=== PATIENT | female | born 1975 | race Caucasian/White ===

== ENCOUNTER 2020-02-02 08:12 | Outpatient (CLI) | payer OTHER, SELFPAY ==
--- NOTE | ~2020-02-02 | MM_ITS ---
EXAMINATION: MM screening jeramie BI w chanel HISTORY: Screening TECHNIQUE: Craniocaudal and mediolateral oblique 3-D tomosynthesis images were obtained and synthetic 2-D images were generated. CAD analysis was submitted and interpreted. COMPARISON: Comparison to multiple prior studies sequentially, with oldest reviewed study dated 06/17. BREAST PARENCHYMAL COMPOSITION: The breasts are extremely dense, which lowers the sensitivity of mamm ography. FINDINGS: There is no evidence of suspicious mass, calcification, or architectural distortion to sugg est malignancy in either breast. There has been no suspicious interval change. IMPRESSION: 1. No mammographic evidence of malignancy. 2. Recommend routine screening mammography in one year. BI-RADS Category 1: Negative Reviewed, dictated and finalized at location A.
== END 2020-02-02 08:13 | disposition home or self-care (01) ==
PROVIDERS: PCP Internal Medicine Geriatric Medicine
DX: Z12.31 Encounter for screening mammogram for malignant neoplasm of breast (principal)
CPT/HCPCS: 77063; 77067

== ENCOUNTER 2021-05-11 07:54 | Outpatient (CLI) | payer OTHER, SELFPAY ==
--- NOTE | ~2021-05-11 | MM_ITS ---
EXAMINATION: MM screening jeramie BI w chanel HISTORY: Screening TECHNIQUE: Craniocaudal and mediolateral oblique 3-D tomosynthesis images were obtained and synthetic 2-D images were generated. CAD analysis was submitted and interpreted. COMPARISON: Comparison to multiple prior studies sequentially, with oldest reviewed study dated 06/17. BREAST PARENCHYMAL COMPOSITION: The breasts are extremely dense, which lowers the sensitivity of mamm ography. FINDINGS: There is no evidence of suspicious mass, calcification, or architectural distortion to sugg est malignancy in either breast. There has been no suspicious interval change. IMPRESSION: 1. No mammographic evidence of malignancy. 2. Recommend routine screening mammography in one year. BI-RADS Category 1: Negative Reviewed, dictated and finalized at location A. ANALYST
== END 2021-05-11 07:55 | disposition home or self-care (01) ==
LOC: ANHIMG 07:57
PROVIDERS: PCP Internal Medicine Geriatric Medicine; Visit Provider Internal Medicine Geriatric Medicine
DX: Z12.31 Encounter for screening mammogram for malignant neoplasm of breast (principal)
CPT/HCPCS: 77063; 77067

== ENCOUNTER 2022-09-19 08:40 | Outpatient (CLI) | payer OTHER, SELFPAY ==
--- NOTE | ~2022-09-19 | MM_ITS ---
EXAMINATION: MM screening jeramie BI w chanel HISTORY: Screening mammogram TECHNIQUE: Craniocaudal and mediolateral oblique 3-D tomosynthesis images were obtained and synthetic 2-D images were generated. CAD analysis was submitted and interpreted. COMPARISON: 05/11/2021, 02/02/2020, 04/24/2019 BREAST PARENCHYMAL COMPOSITION: The breasts are extremely dense, which lowers the sensitivity of mamm ography. FINDINGS: RIGHT BREAST: No suspicious mass, calcification, or architectural distortion are identified to sugges t malignancy. There has been no suspicious interval change. LEFT BREAST: An asymmetry is present at the posterior fibroglandular margin in the outer breast 5.5 c m from the nipple on the craniocaudal view. IMPRESSION: 1. Left breast asymmetry. 2. Additional mammographic views and possible breast ultrasound are recommended. BI-RADS Category 0: Incomplete: Needs additional imaging evaluation. Reviewed, dictated and finalized at location A. IMPRESSION: 1. Left breast asymmetry. 2. Additional mammographic views and possible breast ultrasound are recommended . BI-RADS Category 0: Incomplete: Needs additional imaging evaluation.
== END 2022-09-19 08:41 | disposition home or self-care (01) ==
LOC: ANHIMG 08:43
PROVIDERS: PCP Internal Medicine Geriatric Medicine; Visit Provider Obstetrics & Gynecology
DX: Z12.31 Encounter for screening mammogram for malignant neoplasm of breast (principal)
CPT/HCPCS: 77063; 77067

== ENCOUNTER 2022-09-28 11:57 | Outpatient (CLI) | payer OTHER, SELFPAY ==
--- NOTE | ~2022-09-28 | MMUS_ITS ---
EXAMINATION: MM diagnostic jeramie LT w chanel, US breast LT limited HISTORY: Left breast mammographic asymmetry in the posterior fibroglandular margin in the outer breas t 5.5 cm from nipple on craniocaudal view reported on 09/15/2022 screening mammogram TECHNIQUE: Additional 3-D tomosynthesis images of the left breast were performed and synthetic 2-D im ages were generated. Rolled medial and rolled lateral craniocaudal views. CAD analysis was submitted and interpreted. High resolution left upper outer quadrant and lower outer quadrant breast ultrasound was performed. COMPARISON: None FINDINGS: MAMMOGRAPHIC FINDINGS: Approximately 4 mm circumscribed opacity is again suggested in the posterior outer left breast on rot ated medial craniocaudal projection. Extremely dense fibroglandular stroma may obscure masses. ULTRASOUND: 12:00: Septated 9.4 x 8.5 x 5.2 mm cyst with through transmission posterior enhancement, no internal vascularity 5:00 6 cm from nipple: Parallel circumscribed 4.3 x 5.2 x 2.1 mm sonolucency with through transmissio n consistent with cyst No suspicious mass or shadowing of the upper outer or lower outer quadrants of the left breast is det ected. IMPRESSION: 1. Benign findings 2. Routine annual mammographic screening is recommended, with possible supplemental ultrasound as yenny ropriate for extremely dense stroma BI-RADS Category 2: Benign finding(s). Reviewed, dictated and finalized at location A. IMPRESSION: 1. Benign findings 2. Routine annual mammographic screening is recommended, with possible suppleme ntal ultrasound as appropriate for extremely dense stroma BI-RADS Category 2: Benign finding(s).
== END 2022-09-28 11:58 | disposition home or self-care (01) ==
LOC: ANHIMG 11:57
PROVIDERS: PCP Internal Medicine Geriatric Medicine; Visit Provider Obstetrics & Gynecology
DX: R92.8 Other abnormal and inconclusive findings on diagnostic imaging of breast (principal)
CPT/HCPCS: 76642; 77061; 77065; G0279

== ENCOUNTER 2025-02-13 08:39 | Emergency (ER) | payer OTHER, SELFPAY ==
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
[2025-02-13 08:46] VITALS: BP 116/88; PULSE 72; RESP 16; TEMP 36.5; O2SAT 100
--- OUTSIDE RECORDS SUMMARY | 2025-02-13 08:46 | XMS_ITS | Encounter Summary ---
Author Organization [employer] Address [address] [place] [address] Care Team Providers Care Assistant Property Manager Name Role Phone Unavailable Primary Care Provider Unavailabl e Encounter Details Date Type Department Care Team (Latest Contact Info) Description 02/09/2006 Outpatient Historical HIS [place] [address] [place] [address] [place] [address] [place] [address] Other Threatened Labor, Antepartum (Primary Dx) Social History Tobacco Use Types Packs/Day Years Used Date Smoking Tobacco: Never Assessed Comments Unknown Sex and Gender Information Value Date Recorded Sex Assigned at Not on file Legal 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
--- OUTSIDE RECORDS SUMMARY | 2025-02-13 08:46 | XMS_ITS | Encounter Summary ---
[facility] Organization [email or web address] Address [address] [place] [address] Care Team Providers Care Fire Equipment Operator Name Role Phone Unavailable Primary Care Provider Unavailabl e Encounter Details Date Type Department Care Team (Latest Contact Info) Description 11/21/2005 Outpatient Historical HIS [place] [address] [place] [address] [place] [address] [place] [address] Threatened Premature Labor, Antepartum (Primary Dx) Social History Tobacco Use Types Packs/Day Years Used Date Smoking Tobacco: Never Assessed Comments Unknown Sex and Gender Information Value Date Recorded Sex Assigned at Not on file 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
--- OUTSIDE RECORDS SUMMARY | 2025-02-13 08:46 | XMS_ITS | Encounter Summary ---
Author Organization [facility] Address [address] [place] [address] Care Team Providers Care Remote Sensing Technician Name Role Phone Unavailable Primary Care Provider Unavailabl e Encounter Details Date Type Department Care Team (Late st Contact Info) Description 09/28/2005 Outpatient Historical [facility] Maternal and Ground Floor S [facility] [address] [place] [address] Rehan Evans MD NO ADDRESS ON FILE Social History Tobacco Use Types Packs/Day Years Used Date Smoking Tobacco: Never Assessed Comments Unknown Sex and Gender Information Value Date Recorded Sex Assigned at Not on file Legal Sex Female 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
--- OUTSIDE RECORDS SUMMARY | 2025-02-13 08:46 | XMS_ITS | Clinical Summary ---
Author Organization [facility] Address [address] [place] [address] Phone Care Team Providers Care Relocation Associate Name Role Phone Unavailable Primary Care Provider Unavailabl e Encounters Date Type Department Care Team Description 01/13/2025 External Device Data STL ABSTRACTION Provider, Abstract 01/12/2025 External Device Data STL ABSTRACTION Provider, Abstract 12/01/2024 External Device Data STL ABSTRACTION Provider, Abstract from Last 3 Months Social History Tobacco Use Types Packs/Day Years Used Date Smoking Tobacco: Never Assessed Comments Unknown Sex and Gender Information Value Date Recorded Sex Assigned at Not on file Legal Sex Female 3:25 AM HERB COUNSELOR Gender Identity Not on file Sexual Orientation Not on file Plan of Treatment Upcoming Encounters Date Type Department Care Team (Late st Contact Info) Description 04/09/2025 9:20 AM HERB COUNSELOR Appointment [facility] A [address] [place] [address] [place] [address] [place] [address] Health Maintenance Due Date Last Done Comments DTAP/TDAP/TD VACCINES (1 - Tdap) 12/15/1994 HEPATITIS B VACCINES (1 of 3 - 19+ 3-dose series) 12/15/1994 HPV/Cotest (21-29) 12/15/1996 CERVICAL CANCER SCREENING 12/15/2005 HPV/Cotest (30-65) 12/15/2005 PAP SMEAR 12/15/2005 COLORECTAL SCREENING 12/15/2020 Colorectal Cancer Screening 12/15/2020 FIT-DNA Q 3 years 12/15/2020 FIT/FOBT Q 1 year 12/15/2020 Flex Sig/CT Colonography Q 5 years 12/15/2020 INFLUENZA VACCINE (#1) 2024 0, 02/21/2019, 01/13/2015 BREAST CANCER SCREENING 04/16/2025 04/16/2024, 11/04 Procedures Procedure Name Priority Date/Time Associated Diagnosis Comments MAMMO 3D ASHWIN SCREEN BILAT W OR WO CAD Routine 04/16/2024 9:19 AM HERB COUNSELOR Encounter for screening mammogram for malignant neoplasm of breast from Last 3 Months or Most Recently Relevant to Health Maintenance Results * MAMMO 3D ASHWIN SCREEN BILAT W OR WO CAD (04/16/2024 9:19 AM HERB COUNSELOR) Anatomical Region Laterality Modality Breast Bilateral Mammography 04/16/2024 9:20 AM HERB COUNSELOR Addenda Addendum by July Razo MD on 04/28/2024 7:10 AM HERB COUNSELOR ADDENDUM: The previous outside mammograms dated 09/28/2022, 09/19/2022 and 05/11/2021 were made available for comparison. The breast tissues are heterogeneously dense bilaterally which may lower sensitivity of mammography. No new mass, malignant calcification or architectural distortion is seen. CAD was used. IMPRESSION: No evidence of malignancy. RECOMMENDATIONS: Bilateral annual screening mammogram. BI-RADS Category 1. Negative. Impressions 04/16/2024 10:07 AM HERB COUNSELOR IMPRESSION: [facility] Radiology will request the patient's previous outside studies in order to assess for stability. An addendum will be provided after reviewing the outside exams. DICTATION LOCATION: [facility] 04/16/2024 10:07 AM HERB COUNSELOR BILATERAL FULL-FIELD DIGITAL SCREENING MAMMOGRAM WITH CAD WITH TOMOGRAPHY DATE: 04/16/2024 9:19 AM HISTORY: Annual screening. TECHNIQUE: Low-dose full-field digital breast tomosynthesis examination was performed with 2D and 3D acquisitions. Examination is read in conjunction with computer aided detection. COMPARISON: None. BREAST COMPOSITION: The breasts are heterogeneously dense, which may obscure small masses. FINDINGS: Previous exams are currently unavailable. The patient's outside studies will be requested in order to assess for stability. OVERALL FINAL ASSESSMENT: BI-RADS CATEGORY 0: Incomplete, needs comparison to prior mammograms us Nuria Rivas DO MAMMO ORDERABLES Edited Result - Final from Last 3 Months or Most Recently Relevant to Health Maintenance Insurance [employer] MA[employer] CHOICE
--- OUTSIDE RECORDS SUMMARY | 2025-02-13 08:46 | XMS_ITS | Clinical Summary ---
Author Organization [facility] Address [address] [place] [address] Phone Care Team Providers Care Clothes Separator Name Role Phone MACARIO GUZMAN, SHERINE Dalton Primary Care Provider [phone] Reason for Visit and Chief Complaint The Chief Complaint is: SORE THROAT, COUGH, HEADACHE Plan of Treatment - The options include close observation - Last Documented On 03/14/2020 3:34PM ; [facility] - Watch for signs/symptoms of infection, return to the clinic if seen - Last Documented On 03/14/2020 3:34PM ; [facility] Patient is to quarantine until 14 days past last exposure OTC medication for fever and/or bodyaches Call clinic for worsening symptoms or concerns Go to ED for severe difficulty breathing or lethargy - Last Documented On 03/14/2020 3:34PM ; [facility] Instructions to patient Watch for signs/symptoms of infection, return to the clinic if seen Last Documented On 0 3:29PM ; [facility] Assessments Includes: Assessments from this encounter Findings - Cough [Cough] - Last Documented On 03/14/2020 3:34PM ; [facility] - Exposure to a viral disease [Contact with and (suspected) exposure to other viral communicable diseases] - Last Documented On 03/14/2020 3:34PM ; [facility] Instructions Includes: Instructions from this encounter Instructions to patient Watch for signs/symptoms of infection, return to the clinic if seen Last Documented On 0 3:29PM ; [facility] Medical Equipment - Implanted Devices Includes: Current Devices No Medical Equipment Recorded Medications Includes: Medications discussed during this encounter and other current Medications No Medications Taken Medications Administered Includes: Administered Medications from this encounter No Administered Medications Recorded Vital Signs Includes: Vital Signs from this encounter Vital Name 03/14/2020 03:09P Pulse Rate-Sitting (bpm) 72 Temp-Oral (F) 98.2 Oxygen Saturation (%) 98 Last Documented: On 03/14/2020 3:10PM ; [facility] Results Includes: Results discussed during this encounter Rapid COVID Test [facility] Ordered by QUANG BUCK-C on 05/14/2019 Collected: Reported: 03/14/2020 15:24 Last Documented On 0 3:24PM ; [facility] Reviewed on 03/14/2020; All test results are final unless otherwise noted. Rapid COVId NEG N (Normal) Last Documented On 0 3:24PM ; [facility] Int. QC Acceptable YES N (Normal) Last Documented On 0 3:24PM ; [facility] Lot # and Exp. Date [id number] 07/14/20 N (Normal) Last Documented On 0 3:24PM ; [facility] History of Present Illness Includes: History of Present Illness from this encounter MELY CH is a 44 year old female. - Medication reconciliation performed. - Not feeling fine - Feeling tired - Feeling poorly (malaise) - No fever - No chills - Headache - No sinus pain - No swollen glands in the neck - No eye symptoms - Nasal passage blockage (stuffiness) - Sore throat comes and goes - No ear symptoms - No nasal discharge - No postnasal drip - No chest pain or discomfort - No palpitations - Cough - No dyspnea - No wheezing - No nausea - No vomiting - No abdominal pain - No diarrhea - No myalgias - No skin symptoms Patient is a 44 year old female that presents to the respiratory clinic for exposure to COVID. She was exposed to a co-worker saturday. She states she started having congestion, mild sore throat, cough and headache starting yesterday. Denies fever, SOB, loss of taste/smell, fatigue, bodyaches, n/v/d. Denies any recent travel. Social History Description Last Updated No travel 03/14/2020 Last Documented On 0 3:34PM ; [facility] Smoking Status Unknown Procedures and Surgical History Includes: Procedures from this encounter Procedures Code Diagnosis Performing Provider Service L ocation Service Date review of medications documented 1160F Last Documented On 0 3:09PM ; [facility] Medical History Includes: Medical History addressed during this encounter Description Last Updated Exposure to a contagious disease 020 Last Documented On 0 3:34PM ; [facility] Family History Includes: Family History addressed during this encounter No Family History Recorded Review of Systems Includes: Review of Systems from this encounter Systemic: No systemic symptoms and no fever. Head: Headache. Neck: No neck symptoms. Eyes: No eye symptoms. Otolaryngeal: Nasal passage blockage (stuffiness). Cardiovascular: No cardiovascular symptoms. Pulmonary: Cough. Gastrointestinal: No gastrointestinal symptoms. Genitourinary: No genitourinary symptoms. Endocrine: No endocrine symptoms. Hematologic: No hematologic symptoms. Musculoskeletal: No musculoskeletal symptoms. Neurological: No neurological symptoms. Psychological: No psychological symptoms. Skin: No skin symptoms. Mental Status Includes: Mental Status from this encounter No Mental Status Recorded Functional Status Includes: Functional Status from this encounter No Functional Status Recorded Physical Exam Includes: Physical Exam from this encounter Allergies Includes: Active Allergies No Known Allergies Encounters Encounter Provider Location Date Check-In Time Check-Out Time Diagnosis SICK VISIT QUANG LOPEZP-C [facility] 0 2:30PM 3:28PM Exposure To Contagious Viral Disease,Assess ment of Cough Insurance Includes: Active Insurance Policies Plan Name Member ID Group # Subscriber Relationship Effect satish Dates 1 - [facility] [id number] ADID CH Self Clinical Notes Includes: Clinical Notes from this encounter No Clinical Notes Recorded
--- OUTSIDE RECORDS SUMMARY | 2025-02-13 08:46 | XMS_ITS | Clinical Summary ---
Author Organization [facility] Address [address] [place] [address] Phone Care Team Providers Care Washer Cutter Name Role Phone Analisa Ventura MD Primary Care Provider [phone] Social History Tobacco Use Types Packs/Day Years Used Date Smoking Tobacco: Never Assessed Comments Unknown Sex and Gender Information Value Date Recorded Sex Assigned at Not on file Legal Sex Female 11:12 PM CDT Gender Identity Not on file Sexual Orientation Not on file Plan of Treatment Health Maintenance Due Date Last Done Comments Hepatitis C Virus (HCV) Screening 1975 TdaP Immunization 1975 Hepatitis B Immunization (1 of 3 - 19+ 3-dose series) 12/15/1994 Pap Smear 12/15/1996 Cervical Cancer Screening (CCS) 12/15/2005 HPV/Cotest 12/15/2005 Cologuard 12/15/2020 Colonoscopy 12/15/2020 Colorectal Cancer Screening 12/15/2020 Immunochemical Fecal Occult Blood 12/15/2020 Influenza Immunization (#1) 12/28/202401/28, 02/21/2019 SARS-COV-2 Immunization ( season) 2024 Respiratory Syncytial Virus (RSV) Immunization (Adult) (1 - 1-dose 75+ series) 12/15/2050 Human Papillomavirus (HPV) Immunization Aged Out No longer eligible b ased on patient's age to complete this topic Meningococcal Immunization (ACWY) Aged Out No longer eligible b ased on patient's age to complete this topic Pneumococcal Immunization Combined Aged Out No longer eligible b ased on patient's age to complete this topic Rotavirus Immunization Aged Out No lo nger eligible based on patient's age to complete this topic Care Teams Washer Cutter Relationship Specialty Start Date End Date Analisa Ventura MD [address] [place] [address] PCP - General Geriatric Medicine 02/23/21
--- OUTSIDE RECORDS SUMMARY | 2025-02-13 08:46 | XMS_ITS | Encounter Summary ---
Author Organization [facility] Address 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 ENGRAVER Gender Identity Not on file Sexual Orientation Not on file documented as of this encounter Plan of Treatment Upcoming Encounters Date Type Department Care Team (Late st Contact Info) Description 04/09/2025 9:20 AM ENGRAVER Appointment [facility] [place] A [address] [place] [address] [place] [address] [place] [address] documented as of this encounter Procedures Procedure Name Priority Date/Time Associated Diagnosis Comments FISH STUDIES Routine 10/01/2005 1:53 PM CDT CHROMOSOME ANALYSIS, AMNIOTIC FLUID Routine 09/28/2005 1:17 PM CDT documented in this encounter Results * FISH STUDIES (10/01/2005 1:53 PM CDT) [facility] CYTOGENETICS SPECIMEN Amniotic Fluid INTERFACE SYSTEM FISH RESULTS INTERFA CE SYSTEM Comment: RESULTS: NO EVIDENCE OF NUMERICAL ABNORMALITY for chromosomes 13, 18, 21, X and Y Sex: Female INTERPRETATION: NORMAL INSIGHT RESULT Within the limitations of this technology, this result significantly reduces the risk of aneuploidy for chromosomes 13, 18, 21, X and Y. ISCN nomenclature: nuc marck Xcen(DXZ1x2),Ycen(DYZ3x0),13q14(RB1x2),18cen(B39U0a6), 21q22.13-q22.2([id number]/[id number]) RECOMMENDATIONS: Because these normal screening test results do not exclude all numerical or other cytogenetic abnormalities, standard cytogenetic analysis is recommended. If cytogenetic analysis has been ordered from [facility], that result is pending. COMMENTS: About one third of all chromosome abnormalities cannot be detected by [facility], including structural abnormalities, mosaicism, and numerical abnormalities of other chromosomes. This result should be considered preliminary. In cases of XX results, maternal cell admixture in the amniotic fluid specimen may have compromised the interpretation. In over 40,000 informative amniotic fluid specimens using the AneuVysion TM probe set false positives, false negatives, and incorrect sex determinations have occurred. The presence of maternal blood in the specimen or the presence of oligohydramnios in the increases the risk of incorrect results due to maternal cell contamination. Overall the positive predictive value of an abnormal [facility] result is 99.83% and the negative predictive value of a normal [facility]ight result is 99.96% for the detectable aneuploidies. Blackstrap is the [facility] name for interphase fluorescence in situ hybridization (FISH) analysis for chromosomes 13, 18, 21, X, and Y. Our laboratory currently utilizes the AneuVysionTM probe set from [employer] For standard analyses, 50 cells are examined for each probe. Testing Performed At [facility] [address] [place] [id number], [phone] 10/01/2005 1:53 PM CDT Gerri Mckoy MD BODY FLUIDS AND STOOLS Final R esult Performing Organization Address [facility] de Phone Number INTERFACE SYSTEM Refer to clinic/hospital department * CHROMOSOME ANALYSIS, AMNIOTIC FLUID (09/28/2005 1:17 PM CDT) CYTOGENETICS SPECIMEN Amniotic Fluid INTERFACE SYSTEM CHROMOSOME RESULTS I NTERFACE SYSTEM Comment: RESULTS: 46,XX Female karyotype-SEE BELOW INTERPRETATION: This analysis shows no evidence of clinically significant numerical or structural chromosome abnormalities. The standard cytogenetic methodology utilized in this analysis does not routinely detect small rearrangements and low level mosaicism, and cannot detect microdeletions. The number of colonies examined does not meet our laboratory standard of 15. However, the overall incidence of mosaicism in amniotic fluid samples is reported to be low (0.1-0.3%; Tomas, Conrado.F., Diagnosis of Chromosomal Abnormalities through Amniocentesis. In Brian Nuñez ed., Genetic Disorders and the Fetus, 4th edition. [place]: [employer] [facility] [employer]. 1998. Pp. 203). If clinically indicated, a repeat amniocentesis could be offered. Because this is a female karyotype, maternal cell contamination cannot be excluded. 09/28/2005 1:17 PM CDT Gerri Mckoy MD BODY FLUIDS AND STOOLS Final R veronika Performing Organization Address [facility] Phone Number INTERFACE SYSTEM Refer to clinic/hospital department documented in this encounter Visit Diagnoses Diagnosis Unspecified abnormality affecting management of mother, antepartum condition or complication- Primary documented in this encounter
--- OUTSIDE RECORDS SUMMARY | 2025-02-13 08:46 | XMS_ITS | Patient Health Record ---
Author Organization [facility] [place] Address [address] [address] Care Team Providers Care Plate Developer Name Role Phone Luis Hughes Unavailable [phone] Frankie Dennison Unavailable Unavailable Allergies No Known Allergies Reason For Referral No Information Social History Tobacco Use: Social History Observation Description Date Details (start date - stop date) Never Smoker NA - NA Tobacco Use/Smoking Question Answer Notes Are you a nonsmoker Problems Problem Type SNOMED Code ICD Code Onset Dates Problem Status W/U Status Risk Notes Problem Lumbosacral radiculopathy (6507068) Radiculopathy, lumbosacral region (M54.17) Active confirmed Problem Degenerative disc disease (16798682) DDD (degenerative disc disease), lumbar (M51.36) Active confirmed Problem Displacement of lumbar intervertebral disc without myelopathy (32588045) Herniated nucleus pulposus, L5-S1 (M51.27) Active confirmed Problem Displacement of lumbar intervertebral disc without myelopathy (53239585) Herniated nucleus pulposus, L5-S1, right (M51.27) Active confirmed Plan Of Treatment No Information Medications Administered Medication Instructions Date of Administration Dosage Notes RIGHT L5/S1 SESI 12/23/2020 RIGHT L5/S1 SESI 01/31/2021 Medical (General) History Medical History History ICD Code anxiety Surgical History Surgery Date(Month/Year) Nasal Breast lump 1996
--- OUTSIDE RECORDS SUMMARY | 2025-02-13 08:46 | XMS_ITS | Encounter Summary ---
Author Organization [facility] Address 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 Gender Identity Not on file Sexual Orientation Not on file documented as of this encounter Plan of Treatment Upcoming Encounters Date Type Department Care Team (Late st Contact Info) Description 04/09/2025 9:20 AM INVENTORY WORKER Appointment [facility] [place] A [address] [place] [address] [place] [address] [place] [address] documented as of this encounter Procedures Procedure Name Priority Date/Time Associated Diagnosis Comments URINALYSIS WITH REFLEX CULTURE Routine 11/16/2005 9:00 PM CDT URINALYSIS W/REFLEX MICROSCOPIC Routine 11/16/2005 9:00 PM CDT documented in this encounter Results * (ABNORMAL) URINALYSIS (11/16/2005 9:00 PM CDT) COLOR UA Yellow INTERFACE SYSTEM CLARITY UA Clear Clear INTERFACE SYSTEM SPECIFIC GRAVITY UA <1.005(L) 1.001 - 1.035 INTERFACE SYSTEM Comment:Results confirmed by 2nd methodology. PH UA 7.0 5.0 - 8.0 INTERFACE SYSTEM LEUKOCYTE ESTERASE UA Negative Negative INTERFACE SYSTEM NITRITE UA Negative Negative INTERFACE SYSTEM PROTEIN UA Negative Negative INTERFACE SYSTEM GLUCOSE UA Negative Negative INTERFACE SYSTEM KETONES UA Negative Negative INTERFACE SYSTEM UROBILINOGEN UA <1 <=1 mg/dL INTE RFACE SYSTEM BILIRUBIN UA Negative Negative INTERFA CE SYSTEM BLOOD UA Negative Negative INTERFACE SYSTEM 11/16/2005 9:00 PM CDT Gerri Mckoy MD URINE ORDERABLES Final Result Performing Organization Address [facility] de Phone Number INTERFACE SYSTEM Refer to clinic/hospital department * URINALYSIS WITH REFLEX CULTURE (11/16/2005 9:00 PM CDT) URINE CULTURE ORDER Not indicated INTERFACE SYSTEM Comment: Criteria for a reflex culture include one or more of the following: Abn ormal nitrite, leukocyte esterase, WBCs or RBCs. Lack of qualifying criteria does not exclude the possiblity of a urinary tract infection. Dilute urine, drug interference, etc. may decrease the sensitivity of the criteria analytes. 11/16/2005 9:00 PM CDT Gerri Mckoy MD URINE ORDERABLES Final Result Performing Organization Address [facility] Co de Phone Number INTERFACE SYSTEM Refer to clinic/hospital department documented in this encounter Visit Diagnoses Diagnosis Threatened premature labor, antepartum(644.03)- Primary Threatened premature labor, antepartum documented in this encounter
--- OUTSIDE RECORDS SUMMARY | 2025-02-13 08:46 | XMS_ITS | Encounter Summary ---
Author Organization [facility] Address 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 Gender Identity Not on file Sexual Orientation Not on file documented as of this encounter Plan of Treatment Upcoming Encounters Date Type Department Care Team (Late st Contact Info) Description 04/09/2025 9:20 AM HOUSING PROJECT MANAGER Appointment [facility] [place] A [address] [place] [address] [place] [address] [place] [address] documented as of this encounter Procedures Procedure Name Priority Date/Time Associated Diagnosis Comments CBC WITH DIFFERENTIAL Routine 02/09/2006 11:16 AM CDT CBC WITH DIFFERENTIAL Routine 02/09/2006 11:16 AM CDT URINALYSIS W/REFLEX MICROSCOPIC Routine 02/09/2006 11:16 AM CDT documented in this encounter Results * (ABNORMAL) URINALYSIS (02/09/2006 11:16 AM CDT) COLOR UA Pale Yellow INTERFAC E SYSTEM CLARITY UA Slt. Cloudy(A) Clear INTERFACE SYSTEM SPECIFIC GRAVITY UA <1.005 1.001 - 1.035 INTERFACE SYSTEM PH UA 7.0 5.0 - 8.0 INTERFACE SYSTEM LEUKOCYTE ESTERASE UA 3+(A) Negative INTERFACE SYSTEM NITRITE UA Negative Negative INTERFACE SYSTEM PROTEIN UA Negative Negative INTERFACE SYSTEM GLUCOSE UA Negative Negative INTERFACE SYSTEM KETONES UA Negative Negative INTERFACE SYSTEM UROBILINOGEN UA <1 <=1 mg/dL INTE RFACE SYSTEM BILIRUBIN UA Negative Negative INTERFA CE SYSTEM BLOOD UA Negative Negative INTERFACE SYSTEM WBC UA 6(H) 0 - 5 /HPF INTERFACE SYSTEM RBC UA 1 0 - 4 /HPF INTERFACE SYSTEM BACTERIA UA 1+(A) None Seen /HPF INTERFACE SYSTEM EPITHELIAL CELLS, URINE Many /HPF INTERFACE SYSTEM TRANSITIONAL EPI 0-2 /HPF INT ERFACE SYSTEM 02/09/2006 11:1 6 AM CDT us Gerri Mckoy MD URINE ORDERABLES Final Result INTERFACE SYSTEM Refer to clinic/hospital department * (ABNORMAL) CBC WITH DIFFERENTIAL (02/09/2006 11:16 AM CDT) NEUTROPHILS 76(H) 45 - 70 % INTERFAC E SYSTEM LYMPHOCYTES 15(L) 16 - 45 % INTERFAC E SYSTEM MONOCYTES 8 3 - 13 % INTERFACE SYSTEM EOSINOPHILS 0 0 - 7 % INTERFAC E SYSTEM BASOPHILS 0 0 - 2 % INTERFACE SYSTEM NEUTROPHIL ABSOLUTE 9.60(H) 1.90 - 7.00 K/uL INTERFACE SYSTEM LYMPHOCYTE ABSOLUTE 1.94 0.70 - 4.50 K/uL INTERFACE SYSTEM MONOCYTE ABSOLUTE 1.05 0.10 - 1.30 K/uL INTERFACE SYSTEM EOSINOPHIL ABSOLUTE 0.03 0.00 - 0.70 K/uL INTERFACE SYSTEM BASOPHILS ABSOLUTE 0.03 0.00 - 0.20 K/uL INTERFACE SYSTEM 02/09/2006 11:1 6 AM CDT us Gerri Mckoy MD HEMATOLOGY ORDERABLES Final Re sult INTERFACE SYSTEM Refer to clinic/hospital department * (ABNORMAL) CBC WITH DIFFERENTIAL (02/09/2006 11:16 AM CDT) WBC 12.7(H) 4.0 - 9.8 K/uL INTERFACE SYSTEM RBC 4.38 3.90 - 4.90 M/uL INTERFACE SYSTEM HEMOGLOBIN 12.7 11.8 - 14.8 g/dL INTERFACE SYSTEM HEMATOCRIT 37.8 35.5 - 44.0 % INTERFACE SYSTEM MCV 86.3 82.0 - 99.0 fL INTERFACE SYSTEM MCH 29.0 27.2 - 32.6 pg INTERFACE SYSTEM MCHC 33.6 31.5 - 35.5 % INTERFACE SYSTEM RDW 13.0 11.5 - 14.5 % INTERFACE SYSTEM RDW-STDEV 41.4 37.1 - 48.7 fL INTERFACE SYSTEM PLATELETS 158 140 - 350 K/uL INTERFACE SYSTEM MPV 10.2 9.3 - 12.4 fL INTERFACE SYSTEM 02/09/2006 11:1 6 AM CDT us Gerri Mckoy MD HEMATOLOGY ORDERABLES Final Re sult Performing Organization Address [facility] Co de Phone Number INTERFACE SYSTEM Refer to clinic/hospital department documented in this encounter Visit Diagnoses Diagnosis Other specified indication for care or intervention related to labor and delivery, delivered- Primary documented in this encounter
--- OUTSIDE RECORDS SUMMARY | 2025-02-13 08:46 | XMS_ITS ---
Care Plan - [facility] Created on: February 13, 2025 ADDI CH : 1975 Sex: Female Author Organization [facility] Address [address] [place] [address] Phone Care Team Providers Care Heading Up Machine Operator Name Role Phone MACARIO GUZMAN, SHERINE Dalton Primary Care Provider [phone]
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
--- OUTSIDE RECORDS SUMMARY | 2025-02-13 08:46 | XMS_ITS | Encounter Summary ---
Author Organization [facility] Address [address] [place] [address] Care Team Providers Care Junior Mechanical Engineer Name Role Phone Unavailable Primary Care Provider Unavailabl e Encounter Details Date Type Department Care Team (Late st Contact Info) Description 10/30/2005 Outpatient Historical [facility] [place] [address] [place] [address] Social History Tobacco Use Types Packs/Day Years Used Date Smoking Tobacco: Never Assessed Comments Unknown Sex and Gender Information Value Date Recorded Sex Assigned at Not on file Legal Sex Female 3:25 AM SWING DRIVER Gender Identity Not on file Sexual Orientation Not on file documented as of this encounter Plan of Treatment Upcoming Encounters Date Type Department Care Team (Late st Contact Info) Description 04/09/2025 9:20 AM SWING DRIVER Appointment [facility] Medical Jelm A [address] [place] [address] [place] [address] [place] [address] documented as of this encounter Visit Diagnoses Not on filedocumented in this encounter
--- OUTSIDE RECORDS SUMMARY | 2025-02-13 08:46 | XMS_ITS ---
Author Organization [facility] Address [address] [place] [address] Phone Care Team Providers Care Parks And Recreation Worker Name Role Phone MACARIO GUZMAN, SHERINE Dalton Primary Care Provider [phone] Plan of Treatment Findings Encounter Date The options include close observation SI CK VISIT with QUANG Weiss HEAVENLY HYPERTRICHOLOGIST-C 03/14/2020 Last Documented On 0 3:34PM ; [facility] Watch for signs/symptoms of infection, return to the clinic if seen SICK VISIT with QUANG Weiss HEAVENLY HYPERTRICHOLOGIST-C 03/14/2020 Last Documented On 0 3:34PM ; [facility] Instructions to patient Watch for signs/symptoms of infection, return to the clinic if seen Last Documented On 0 3:29PM ; [facility] Assessments Includes: Assessments for all patient encounters Findings Encounter Date Assessment of cough SICK VISIT with QUANG Weiss RADHA KENNEDY HYPERTRICHOLOGIST-C 03/14/2020 Last Documented On 0 3:34PM ; [facility] Exposure to a viral disease SICK VISIT with JOSE D Weiss HEAVENLY HYPERTRICHOLOGIST-C 03/14/2020 Last Documented On 0 3:34PM ; [facility] Instructions Includes: Instructions for all patient encounters Instructions to patient Watch for signs/symptoms of infection, return to the clinic if seen Last Documented On 0 3:29PM ; [facility] Medical Equipment - Implanted Devices Includes: Current and historical Devices No Medical Equipment Recorded Medications Includes: Current and historical Medications No Medications Taken Medications Administered Includes: Administered Medications in patient's chart No Administered Medications Recorded Results Includes: Results from 02/14/2024 through 02/13/2025 No Results Recorded For Specified Dates History of Present Illness History of Present Illness not supported for this document type No History of Present Illness Recorded Social History Description Last Updated No travel 03/14/2020 Last Documented On 0 3:34PM ; [facility] Smoking Status Unknown Medical History Includes: Medical History in patient's chart Description Last Updated Exposure to a contagious disease 020 Last Documented On 0 3:34PM ; [facility] Family History Includes: Family History in patient's chart No Family History Recorded Review of Systems Review of Systems not supported for this document type No Review of Systems Recorded Mental Status No Mental Status Recorded Functional Status No Functional Status Recorded Physical Exam Physical Exam not supported for this document type No Physical Exam Recorded Allergies Includes: Active, inactive, and resolved Allergies No Known Allergies Insurance Includes: Active Insurance Policies Plan Name Member ID Group # Subscriber Relationship Effect satish Dates 1 - [facility] [id number] ADDI CH Self Clinical Notes Includes: Signed Clinical Notes starting from 05/18/2022 No Clinical Notes Recorded
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
== END 2025-02-13 10:18 | disposition home or self-care (01) ==
PROVIDERS: Emergency Provider Nurse Practitioner
DX: S13.4XXA Sprain of ligaments of cervical spine, initial encounter (principal); S39.012A Strain of muscle, fascia and tendon of lower back, initial encounter; V49.9XXA Car occupant (driver) (passenger) injured in unspecified traffic accident, initial encounter
CPT/HCPCS: 72050; 72170; 99214; G0463

== ENCOUNTER → 2025-02-17 10:10 | Outpatient (CLI) | payer OTHER, SELFPAY ==
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
--- OUTSIDE RECORDS SUMMARY | 2025-02-17 12:16 | XMS_ITS | Patient Health Record ---
Author Organization [facility] [place] Address [address] [address] Care Team Providers Care Director Prison Name Role Phone Luis Hughes Unavailable [phone] Frankie Dennison Unavailable Unavailable Allergies No Known Allergies Reason For Referral No Information Social History Tobacco Use: Social History Observation Description Date Details (start date - stop date) Never Smoker NA - NA Tobacco Use/Smoking Question Answer Notes Are you a nonsmoker Problems Problem Type SNOMED Code ICD Code Onset Dates Problem Status W/U Status Risk Notes Problem Lumbosacral radiculopathy (7862408) Radiculopathy, lumbosacral region (M54.17) Active confirmed Problem Degenerative disc disease (28021550) DDD (degenerative disc disease), lumbar (M51.36) Active confirmed Problem Displacement of lumbar intervertebral disc without myelopathy (81876043) Herniated nucleus pulposus, L5-S1 (M51.27) Active confirmed Problem Displacement of lumbar intervertebral disc without myelopathy (89026385) Herniated nucleus pulposus, L5-S1, right (M51.27) Active confirmed Plan Of Treatment No Information Medications Administered Medication Instructions Date of Administration Dosage Notes RIGHT L5/S1 SESI 12/23/2020 RIGHT L5/S1 SESI 01/31/2021 Medical (General) History Medical History History ICD Code anxiety Surgical History Surgery Date(Month/Year) Nasal Breast lump 1996
--- OUTSIDE RECORDS SUMMARY | 2025-02-17 12:17 | XMS_ITS | Encounter Summary ---
Author Organization [facility] Address [address] [place] [address] Care Team Providers Care Needle Loom Tender Name Role Phone Unavailable Primary Care Provider Unavailabl e Encounter Details Date Type Department Care Team (Late st Contact Info) Description 09/28/2005 Outpatient Historical [facility] Maternal and Ground Floor S [facility] [address] [place] [address] Rehan Evans MD NO ADDRESS ON FILE Social History Tobacco Use Types Packs/Day Years Used Date Smoking Tobacco: Never Assessed Comments Unknown Sex and Gender Information Value Date Recorded Sex Assigned at Not on file 

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
--- OUTSIDE RECORDS SUMMARY | 2025-02-17 12:17 | XMS_ITS | Encounter Summary ---
Author Organization [facility] Address 

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
--- OUTSIDE RECORDS SUMMARY | 2025-02-17 12:17 | XMS_ITS | Encounter Summary ---
Author Organization [facility] Address [address] [place] [address] Care Team Providers Care Quill Machine Tender Name Role Phone Unavailable Primary Care Provider Unavailabl e Encounter Details Date Type Department Care Team (Latest Contact Info) Description 09/28/2005 Outpatient Historical [facility] [address] [place] [address] Abn NOS-Antepar (Primary Dx) Social History Tobacco Use Types Packs/Day Years Used Date Smoking Tobacco: Never Assessed Comments Unknown Sex and Gender Information Value Date Recorded Sex Assigned at Not on file Legal Sex Female 3:25 AM CRYSTALIZER OPERATOR Gender Identity Not on file Sexual Orientation Not on file documented as of this encounter Plan of Treatment Upcoming Encounters Date Type Department Care Team (Late st Contact Info) Description 04/09/2025 9:20 AM CRYSTALIZER OPERATOR Appointment [facility] [place] A [address] [place] [address] [place] [address] [place] [address] documented as of this encounter Procedures Procedure Name Priority Date/Time Associated Diagnosis Comments FISH STUDIES Routine 10/01/2005 1:53 PM CDT CHROMOSOME ANALYSIS, AMNIOTIC FLUID Routine 09/28/2005 1:17 PM CDT documented in this encounter Results * FISH STUDIES (10/01/2005 1:53 PM CDT) [facility] CYTOGENETICS SPECIMEN Amniotic Fluid INTERFACE SYSTEM FISH RESULTS INTERFA CE SYSTEM Comment: RESULTS: NO EVIDENCE OF NUMERICAL ABNORMALITY for chromosomes 13, 18, 21, X and Y Sex: Female INTERPRETATION: NORMAL INSIGHT RESULT Within the limitations of this technology, this result significantly reduces the risk of aneuploidy for chromosomes 13, 18, 21, X and Y. ISCN nomenclature: nuc marck Xcen(DXZ1x2),Ycen(DYZ3x0),13q14(RB1x2),18cen([id number]), 21q22.13-q22.2([id number]) RECOMMENDATIONS: Because these normal screening test results do not exclude all numerical or other cytogenetic abnormalities, standard cytogenetic analysis is recommended. If cytogenetic analysis has been ordered from [employer], that result is pending. COMMENTS: About one [...] result is 99.96% for the detectable aneuploidies. Supersonic is the [employer] name for interphase fluorescence in situ hybridization (FISH) analysis for chromosomes 13, 18, 21, X, and Y. Our laboratory currently utilizes the AneuVysionTM probe set from [employer] For standard analyses, 50 cells are examined for each probe. Testing Performed At [employer] [address] [place] [address], [phone] 10/01/2005 1:53 PM CDT Gerri Mckoy MD BODY FLUIDS AND STOOLS Final R esult Performing Organization Address [facility] Phone Number INTERFACE SYSTEM Refer to [...] Genetic Disorders and the Fetus, 4th edition. [place]: The [facility] University [employer]. 1998. Pp. 203). If clinically indicated, a repeat amniocentesis could be offered. Because this is a female karyotype, maternal cell contamination cannot be excluded. 09/28/2005 1:17 PM CDT Gerri Mckoy MD BODY FLUIDS AND STOOLS Final R veronika Performing Organization Address [facility] Phone Number INTERFACE SYSTEM Refer to clinic/hospital department documented in this encounter Visit Diagnoses Diagnosis Unspecified abnormality affecting management of mother, antepartum condition or complication- Primary documented in this encounter
--- OUTSIDE RECORDS SUMMARY | 2025-02-17 12:17 | XMS_ITS | Encounter Summary ---
Author Organization [facility] Address [address] [place] [address] Care Team Providers Care Printed Circuit Boards Router Name Role Phone Unavailable Primary Care Provider Unavailabl e Encounter Details Date Type Department Care Team (Late st Contact Info) Description 10/30/2005 Outpatient Historical [facility] [place] [address] [place] [address] Social History Tobacco Use Types Packs/Day Years Used Date Smoking Tobacco: Never Assessed Comments Unknown Sex and Gender Information Value Date Recorded Sex Assigned at Not on file Legal Sex Female 3:25 AM RIDE MECHANIC Gender Identity Not on file Sexual Orientation Not on file documented as of this encounter Plan of Treatment Upcoming Encounters Date Type Department Care Team (Late st Contact Info) Description 04/09/2025 9:20 AM RIDE MECHANIC Appointment [facility] [place] A [address] [place] [address] [place] [address] [place] [address] documented as of this encounter Visit Diagnoses Not on filedocumented in this encounter
--- OUTSIDE RECORDS SUMMARY | 2025-02-17 12:17 | XMS_ITS | Encounter Summary ---
Author Organization [facility] Address [address] [place] [address] Care Team Providers Care Brass And Wind Instrument Repairer Name Role Phone Unavailable Primary Care Provider Unavailabl e Encounter Details Date Type Department Care Team (Latest Contact Info) Description 02/09/2006 Outpatient Historical [facility] [place] [address] [place] [address] [place] [address] [place] [address] Other Threatened Labor, Antepartum (Primary Dx) Social History Tobacco Use Types Packs/Day Years Used Date Smoking Tobacco: Never Assessed Comments Unknown Sex and Gender Information Value Date Recorded Sex Assigned at Not on file Legal Sex Female 3:25 AM DIRECTOR OF REGULATORY AFFAIRS Gender Identity Not on file Sexual Orientation Not on file documented as of this encounter Plan of Treatment Upcoming Encounters Date Type Department Care Team (Late st Contact Info) Description 04/09/2025 9:20 AM DIRECTOR OF REGULATORY AFFAIRS Appointment [facility] [place] A [address] [place] [address] [place] [address] [place] [address] documented as of this encounter Visit Diagnoses Diagnosis Other threatened labor, antepartum- Primary documented in this encounter
--- OUTSIDE RECORDS SUMMARY | 2025-02-17 12:18 | XMS_ITS | Clinical Summary ---
Author Organization [facility] Address [address] [place] [address] Phone Care Team Providers Care Layout Operator Name Role Phone Analisa Ventura MD Primary Care Provider Social History Tobacco Use Types Packs/Day Years [...] age to complete this topic Care Teams Layout Operator Relationship Specialty Start Date End Date Analisa Ventura MD [address] [place] [address] PCP - General Geriatric Medicine 02/23/21
--- OUTSIDE RECORDS SUMMARY | 2025-02-17 12:18 | XMS_ITS | Encounter Summary ---
Author Organization [facility] Address [address] [place] [address] Care Team Providers Care Scale Agent Name Role Phone Unavailable Primary Care Provider Unavailabl e Encounter Details Date Type Department Care Team (Latest Contact Info) Description 02/11/2006 Inpatient Historical [place] [address] [place] [address] Complic Labor NEC-Deliv (Primary Dx) Social History Tobacco Use Types Packs/Day Years Used Date Smoking Tobacco: Never Assessed Comments Unknown Sex and Gender Information Value Date Recorded Sex Assigned at Not on file Legal Sex Female 3:25 AM ELECTRIC SYSTEM OPERATOR Gender Identity Not on file Sexual Orientation Not on file documented as of this encounter Plan of Treatment Upcoming Encounters Date Type Department Care Team (Late st Contact Info) Description 04/09/2025 9:20 AM ELECTRIC SYSTEM OPERATOR Appointment [facility] [place] A [address] [place] [address] [place] [address] [place] [address] documented as of this encounter [...] ORDERABLES Final Re sult Performing Organization Address [facility] Co de Phone Number INTERFACE SYSTEM Refer to clinic/hospital department documented in this encounter Visit Diagnoses Diagnosis Other specified indication for care or intervention related to labor and delivery, delivered- Primary documented in this encounter
--- OUTSIDE RECORDS SUMMARY | 2025-02-17 12:18 | XMS_ITS | Clinical Summary ---
Author Organization [facility] Address [address] [place] [address] Phone Care Team Providers Care Search Coordinator Name Role Phone Unavailable Primary Care Provider Unavailabl e Encounters Date Type Department Care Team Description 02/16/2025 External Device Data STL ABSTRACTION Provider, Abstract 01/13/2025 External Device Data STL ABSTRACTION Provider, Abstract 01/12/2025 External Device Data STL ABSTRACTION Provider, Abstract 12/01/2024 External Device Data STL ABSTRACTION Provider, Abstract from Last 3 Months Social History Tobacco Use Types Packs/Day Years Used Date Smoking Tobacco: Never Assessed Comments Unknown Sex and Gender Information Value Date Recorded Sex Assigned at Not on file Legal Sex Female 3:25 AM CURATOR ZOOLOGICAL MUSEUM Gender Identity Not on file Sexual Orientation Not on file Plan of Treatment Upcoming Encounters Date Type Department Care Team (Late st Contact Info) Description 04/09/2025 9:20 AM CURATOR ZOOLOGICAL MUSEUM Appointment [facility] A [address] [place] [address] [place] [address] [place] [address] Health Maintenance Due Date Last Done Comments [...] 5 years 12/15/2020 INFLUENZA VACCINE (#1) 2024 , 02/21/2019, 01/13/2015 BREAST CANCER SCREENING 04/16/2025 04/16/2024, 11/04 Procedures Procedure Name Priority Date/Time Associated Diagnosis Comments MAMMO 3D ASHWIN SCREEN BILAT W OR WO CAD Routine 04/16/2024 9:19 AM CURATOR ZOOLOGICAL MUSEUM Encounter for screening mammogram for malignant neoplasm of breast from Last 3 Months or Most Recently Relevant to Health Maintenance Results * MAMMO 3D ASHWIN SCREEN BILAT W OR WO CAD (04/16/2024 9:19 AM CURATOR ZOOLOGICAL MUSEUM) Anatomical Region Laterality Modality Breast Bilateral Mammography 04/16/2024 9:20 AM CURATOR ZOOLOGICAL MUSEUM Addenda Addendum by July Razo MD on 04/28/2024 7:10 AM CURATOR ZOOLOGICAL MUSEUM ADDENDUM: The previous outside mammograms dated 09/28/2022, 09/19/2022 and 05/11/2021 were made available for comparison. The breast tissues are heterogeneously dense bilaterally which may lower sensitivity of mammography. No new mass, malignant calcification or architectural distortion is seen. CAD was used. IMPRESSION: No evidence of malignancy. RECOMMENDATIONS: Bilateral annual screening mammogram. BI-RADS Category 1. Negative. Impressions 04/16/2024 10:07 AM CURATOR ZOOLOGICAL MUSEUM IMPRESSION: [facility] will request the patient's previous outside studies in order to assess for stability. An addendum will be provided after reviewing the outside exams. DICTATION LOCATION: [facility] Narrative 04/16/2024 10:07 AM CURATOR ZOOLOGICAL MUSEUM BILATERAL FULL-FIELD DIGITAL SCREENING MAMMOGRAM WITH CAD [...]
== END ==
LOC: EXPBRAD 10:13
PROVIDERS: PCP Nurse Practitioner Family; Visit Provider Nurse Practitioner Family
DX: M54.50 Low back pain, unspecified (principal)
CPT/HCPCS: 72100